=== PATIENT | male | born 1945 | race Caucasian/White ===

== ENCOUNTER 2017-01-19 21:23 | Emergency (ER) | payer MEDICARE, OTHER ==
--- NOTE | 2017-01-19 22:27 | EDM.PDOC ---
ED HPI GENERAL MEDICAL PROBLEM - General Chief Complaint: Respiratory Problem Stated Complaint: FLU LIKE SYMPTOMS Time Seen by Provider: 01/19/17 22:57 Source of Information: Reports: Patient, RN Notes Reviewed History Limitations: Reports: No Limitations - History of Present Illness INITIAL COMMENTS - FREE TEXT/NARRATIVE: here with his Chief complaint Cough History of present illness 71-year-old male has had a cough for over 2 weeks with white and yellow sputum. Tonight becoming very weak and tired with chills to the point of his teeth chattering, unaware that he had a fever until he arrived here. Quite weak on arrival Also some chest ache across the anterior chest from coughing so hard. 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 Pain Score (Numeric/FACES): 3 - Related Data Allergies Allergy/AdvReac Type Severity Reaction Status Date / Time *seasonal Allergy Sneezing Uncoded 01/19/17 22:32 Home Meds: Home Meds Aspirin 81 mg PO DAILY 09/29/15 [History] Calcium Carb & Citrate/Vit D3 [Calcium + D3 ER Tablet] 1 tab PO DAILY 09/29/15 [ History] Cetirizine HCl [Zyrtec] 10 mg PO DAILY 09/29/15 [History] Glucosa Morales 2KCl/Chondroitin Morales [Glucosamine-Chondroitin Cap] 2 tab PO DAILY 04/03 [History] Hydrochlorothiazide 25 mg PO BEDTIME 09/29/15 [History] Lisinopril 20 mg PO DAILY 09/29/15 [History] Metoprolol Succinate [Toprol XL] 25 mg PO DAILY 09/29/15 [History] Naproxen Sodium [Aleve] 220 mg PO DAILY 09/29/15 [History] [place]-3/DHA/Epa/Fish Oil [Fish Oil 1,000 mg Softgel] 2 cap PO DAILY 09/29/15 [ History] Psyllium Husk [Fiber] 4 cap PO DAILY 09/29/15 [History] atorvaSTATin [Lipitor] 40 mg PO BEDTIME 09/29/15 [History] rOPINIRole [Requip] 1 mg PO BEDTIME 09/29/15 [History] Doxycycline Monohydrate [Avidoxy] 100 mg PO BID #20 tablet 01/19/17 [Rx] Past Medical History Cardiovascular History: Reports: High Cholesterol, Hypertension Respiratory History: Reports: Sleep Apnea Other Respiratory History: uses cpap Gastrointestinal History: Reports: GERD Genitourinary History: Reports: Prostate Disorder Musculoskeletal History: Reports: Arthritis, Osteoarthritis Neurological History: Reports: None Endocrine/Metabolic History: Reports: Obesity/BMI 30+ - Infectious Disease History Infectious Disease History: Reports: Chicken Pox - Past Surgical History Male Surgical History: Reports: TURP-Transurethral Resection of Prostate Neurological Surgical History: Reports: Discectomy, Lumbar Spine Social & Family History - Tobacco Use Smoking Status *Q: Former Smoker Years of Tobacco use: 2 Packs/Tins Daily: 0.1 Used Tobacco, but Quit: Yes Month Tobacco Last Used: 1986 Second Hand Smoke Exposure: No - Alcohol Use Days Per Week of Alcohol Use: 7 Number of Drinks Per Day: 6 Total Drinks Per Week: 42 - Recreational Drug Use Recreational Drug Use: No ED ROS GENERAL - Review of Systems Review Of Systems: See Below Constitutional: Reports: Chills, Weakness, Fatigue, Diaphoresis HEENT: Reports: Eye Pain. Denies: Ear Pain, Nose Pain, Rhinitis, Throat Pain, Vision Change Respiratory: Reports: Shortness of Breath, Cough, Other (chest take). Denies: Pleuritic Chest Pain Cardiovascular: Reports: Lightheadedness. Denies: Dyspnea on Exertion, Syncope GI/Abdominal: Reports: No Symptoms : Reports: No Symptoms Musculoskeletal: Reports: No Symptoms Skin: Reports: No Symptoms Neurological: Reports: No Symptoms ED EXAM, GENERAL - Physical Exam Exam: See Below Exam Limited By: No Limitations General Appearance: Alert, Mild Distress, Other (febrile minimal tachycardia, no difficulty speaking or breathing) Eye Exam: Bilateral Eye: EOMI, Normal Inspection Ears: Normal External Exam, Normal Canal, Hearing Grossly Normal, Normal TMs Nose: Normal Inspection, Normal Mucosa Throat/Mouth: Normal Inspection, Normal Oropharynx, Normal Voice Head: Atraumatic, Normocephalic. No: Facial Swelling Neck: Normal Inspection, Non-Tender. No: Lymphadenopathy (R) Respiratory/Chest: No Respiratory Distress, Lungs Clear, Normal Breath Sounds, No Accessory Muscle Use, Chest Non-Tender Cardiovascular: Normal Peripheral Pulses, Tachycardia (minimal, rate 102) GI/Abdominal: Non-Tender Extremities: Normal Capillary Refill Neurological: Alert, Normal Cognition, No Motor/Sensory Deficits Psychiatric: Normal Affect, Normal Mood Skin Exam: Warm, Dry, Intact, Normal Color, No Rash, Diaphoretic Course - Vital Signs Last Recorded V/S: Last Vital Signs Temp 39.4 C H 01/19/17 21:56 Pulse 102 H 01/19/17 21:56 Resp 18 01/19/17 21:56 BP 139/81 01/19/17 21:56 Pulse Ox 92 L 01/19/17 21:56 - Orders/Labs/Meds Orders: Active Orders 24 hr Category Date Time Status Chest 2V [CR] Stat Exams 01/19/17 23:15 Taken Meds: Medications Discontinued Medications Generic Name Dose Route Start Last Admin Trade Name Adilene PRN Reason Stop Dose Admin Acetaminophen 1,000 mg 01/19/17 23:14 01/19/17 23:25 Tylenol Extra Strength PO 01/19/17 23:15 1,000 mg ONETIME ONE Administration - Re-Assessments/Exams Free Text/Narrative Re-Assessment/Exam: 01/19/17 23:22 71-year-old male with cough for about 2 weeks, new fever tonight with chills and sweats. Differential diagnosis includes pneumonia, bronchitis, viral infection, among others. Acetaminophen thousand milligrams by mouth Chest x-ray suspicious for left lingular infiltrate 01/19/17 23:59 Departure - Departure Time of Disposition: 23:59 Disposition: Home, Self-Care 01 Condition: Good Clinical Impression: Pneumonia Qualifiers: Pneumonia type: due to unspecified organism Laterality: left Lung location: lower lobe of lung Qualified Code(s): J18.1 - Lobar pneumonia, unspecified organism - Discharge Information Prescriptions: Doxycycline Monohydrate [Avidoxy] 100 mg PO BID #20 tablet Instructions: Community-Acquired Pneumonia, Adult, [id number] Referrals: PCP,None [Primary Care Provider] - Forms: ED Department Discharge - My Orders Last 24 Hours: My Active Orders 01/19/17 23:15 Chest 2V [CR] Stat - Assessment/Plan Last 24 Hours: My Active Orders 01/19/17 23:15 Chest 2V [CR] Stat
[2017-01-19] MEDS ORDERED: Acetaminophen 500 MG Tab PO ONE (23:14)
[2017-01-20 00:07] VITALS: BP 141/79
--- NOTE | 2017-01-20 09:05 | CR ---
Chest 2V HISTORY: Cough 2 weeks, fever over 102 COMPARISON: None FINDINGS: Questionable mild linear interstitial prominence left lingula. This could be mild atelectasis versus early infiltrate. Lungs are otherwise clear. Heart size is within normal limits. No vascular redistri bution or pleural fluid can be seen. Convex density at the right cardiophrenic angle appears most sug gestive for a prominent epicardial fat pad. Moderate anterolateral aspects are noted diffusely along the thoracic spine. IMPRESSION: Possible early infiltrate versus atelectasis left lingula. Epicardial fat pad is noted. Diffuse degen erative and hypertrophic changes thoracic spine.
== END 2017-01-20 00:17 | disposition home or self-care (01) ==
LOC: JP.ED 21:23
DX: J18.9 Pneumonia, unspecified organism (principal); I10 Essential (primary) hypertension; E78.00 Pure hypercholesterolemia, unspecified; G47.30 Sleep apnea, unspecified; M19.90 Unspecified osteoarthritis, unspecified site; E66.9 Obesity, unspecified; Z98.890 Other specified postprocedural states; Z87.891 Personal history of nicotine dependence; Z79.82 Long term (current) use of aspirin; Z79.899 Other long term (current) drug therapy; Z68.42 Body mass index [BMI] 45.0-49.9, adult
CPT/HCPCS: 71020; 99284; A9270; 99283